=== PATIENT | male | born 1990 | race Two or more races ===

== ENCOUNTER 2017-08-02 09:13 | Emergency (ER) | payer SELFPAY ==
[~2017-08-02] VITALS: Ht 175.3 cm; Wt 113.4 kg
[2017-08-02 09:16] VITALS: BP 107/59
[2017-08-02] MEDS ORDERED: HYDROcodone-ACET 10/325MG TAB PO ONE (11:15)
== END 2017-08-02 12:20 | disposition home or self-care (01) ==
LOC: ER 09:13
DX: S29.011A Strain of muscle and tendon of front wall of thorax, initial encounter (principal); V47.6XXA Car passenger injured in collision with fixed or stationary object in traffic accident, initial encounter; Y93.89 Activity, other specified; Y99.8 Other external cause status; Y92.410 Unspecified street and highway as the place of occurrence of the external cause
CPT/HCPCS: 36415; 71045; 84484; 93005